=== PATIENT | male | born 1960 | race Caucasian/White ===

== ENCOUNTER 2018-03-14 19:20 | Inpatient (IN) | payer MEDICAID ==
[~2018-03-14 19:20] MED LIST: HEPARIN 5,000 UNIT/0.5 ML VIAL
[2018-03-14 19:38] LABS: ADD MAN DIFF? NO
[2018-03-14 19:44] LABS: WHITE BLOOD COUNT 15.7 10^3/ul (4.8-10.8)
[2018-03-14 19:44] LABS: ABNORMAL IP MESSAGE 1; BASOPHIL # 0.1 10^3/ul (0.0-0.1); BASOPHILS % 0.4 % (0.0-2.0); EOSINOPHILS # 0.1 10^3/ul (0.0-0.5); EOSINOPHILS % 0.5 % (0.0-7.0); HEMATOCRIT 42.8 % (42.0-52.0); HEMOGLOBIN 14.5 g/dl (14.0-18.0); LYMPHOCYTES # 5.2 10^3/ul (0.8-2.9); LYMPHOCYTES % 32.9 % (15.0-51.0); MEAN CORPUSCULAR HEMOGLOBIN 31.1 pg (29.0-33.0); MEAN CORPUSCULAR HGB CONC 33.9 g/dl (32.0-37.0); MEAN CORPUSCULAR VOLUME 91.8 fl (82.0-101.0); MEAN PLATELET VOLUME 11.9 fl (7.4-10.4); MONOCYTE # 0.6 10^3/ul (0.3-0.9); MONOCYTES % 3.7 % (0.0-11.0); NEUTROPHIL # 9.4 10^3/ul (1.6-7.5); NEUTROPHILS % 60.1 % (39.0-77.0); PLATELET COUNT 258 10^3/UL (140-415); POSITIVE DIFF @See below; RED BLOOD COUNT 4.66 10^6/ul (4.70-6.10); RED CELL DISTRIBUTION WIDTH 13.3 % (11.5-14.5)
[2018-03-14] MEDS: MIDAZOLAM (DRIP) 50 mg/50 mL 50 ML IV (20:05)
[2018-03-14] MEDS: HEPARIN 5,000 UNIT/0.5 ML VIAL SC (20:05)
[2018-03-14] MEDS: SOD CHLORIDE 0.9% 1,000 ML IV ×2 (20:05)
[2018-03-14 20:06] LABS: ANION GAP 18 (8-16); BLOOD UREA NITROGEN 16 mg/dl (7-20); CALCIUM 9.3 mg/dl (8.4-10.2); CARBON DIOXIDE 23 mmol/L (21-31); CHLORIDE 107 mmol/L (97-110); CREATINE KINASE 81 IU/L (23-200); CREATININE 0.83 mg/dl (0.61-1.24); GLUCOSE 246 mg/dl (70-220); POTASSIUM 3.7 mmol/L (3.5-5.1); SODIUM 144 mmol/L (135-144)
[2018-03-14 20:10] LABS: INR 1.02; PROTIME 13.5 Sec (11.9-14.9); PT RATIO 1.1
[2018-03-14 20:18] LABS: CK INDEX 1.3; CK-MB 1.09 ng/ml (0.0-2.4); TROPONIN-I 0.046 ng/ml (0.000-0.120)
[2018-03-14] MEDS ORDERED: LIDOCAINE 1% (MDV) 20 ML INJ (20:29)
[2018-03-14] MEDS ORDERED: NITROGLYCERIN (IC) 100 MCG/ML INJ (20:29)
[2018-03-14] MEDS ORDERED: HEPARIN 1000 UNITS/ML 10 ML INJ (20:29)
[2018-03-14] MEDS ORDERED: BIVALIRUDIN 250MG /NS 50 ML 50 ML IVPB (20:29)
[2018-03-14] MEDS ORDERED: IODIXANOL LOCM 50 ML BTL (20:56)
[2018-03-14] MEDS ORDERED: IODIXANOL LOCM 100 ML BTL (20:56)
[2018-03-14] MEDS ORDERED: CANGRELOR TETRASODIUM/ NS 250 50 MG (20:56)
[2018-03-14] MEDS ORDERED: SOD CHLORIDE 0.9% 1,000 ML IV (21:01)
[2018-03-14] MEDS ORDERED: morphine 2 MG INJ IV (21:30)
[2018-03-14] MEDS ORDERED: IPRATROPIUM (HFA) 12.9 GM INHALER INH (21:30)
[2018-03-14] MEDS ORDERED: ALBUTEROL HFA 8 GM INHALER INH (21:30)
[2018-03-14] MEDS: CLOPIDOGREL 300 MG TAB PO (21:30)
[2018-03-14] MEDS ORDERED: ACETAMINOPHEN 325 MG TAB PO (21:30)
[2018-03-14 21:53] LABS: CHOL/HDL RATIO 4.7 RATIO; HDL CHOLESTEROL 39 mg/dl (28-71); LDL CHOLESTEROL,CALCULATED 124 mg/dl; TRIGLYCERIDES 121 mg/dl (0-149)
[2018-03-14 21:53] LABS: CHOLESTEROL 187 mg/dl (100-200)
[2018-03-14 21:57] LABS: MAGNESIUM 2.3 mg/dl (1.7-2.5)
[2018-03-14 21:59] LABS: HEMOGLOBIN A1C 5.2 % (0-5.9)
[2018-03-14] MEDS: PROPOFOL 100 ML IV (22:10)
[2018-03-14] MEDS: METOPROLOL 5 MG INJ IV (22:10)
[2018-03-14 22:42] LABS: AADO2 Arterial 152.5 mmHg (7.0-24.0); Arterial Base Excess -3.5 mmol/L (-3.0-3); Arterial Blood Gas Oxygen Sat 99.3 mmHG (95.0-98.0); Arterial COHb 0.4 % (0.0-3.0); Arterial Fraction of Oxyhgb 98.4 % (93.0-99.0); Arterial HCO3 21.2 mmol/L (22.0-26.0); Arterial MetHb 0.5 % (0.0-1.5); Arterial Total Hemglobin 14.1 g/dl (12.0-18.0); Arterial pCO2 37.2 mmhg (35-45); Blood Gas Low PEEP Setting 0 cmH2O; MODE VENT - AC; Site LB
[2018-03-15] MEDS ORDERED: ACETAMINOPHEN 650 MG SUPP PR
[2018-03-15] MEDS ORDERED: MEPERIDINE 25 MG INJ IV
[2018-03-15] MEDS: FENTAnyl 50 MCG/ML VIAL IV ×4 (00:10→00:30)
[2018-03-15] MEDS: MIDAZOLAM (DRIP) 50 mg/50 mL 50 ML IV ×2 (00:24→06:12)
[2018-03-15] MEDS: ACCU-CHEK XX ×24 (01:00→23:36)
[2018-03-15 01:28] LABS: ANION GAP 12 (8-16); BLOOD UREA NITROGEN 17 mg/dl (7-20); CALCIUM 8.2 mg/dl (8.4-10.2); CARBON DIOXIDE 26 mmol/L (21-31); CHLORIDE 109 mmol/L (97-110); CREATININE 0.64 mg/dl (0.61-1.24); GLUCOSE 177 mg/dl (70-220); MAGNESIUM 1.8 mg/dl (1.7-2.5); PHOSPHORUS 2.2 mg/dl (2.5-4.9); POTASSIUM 3.8 mmol/L (3.5-5.1); SODIUM 143 mmol/L (135-144)
[2018-03-15] MEDS: FENTAnyl (DRIP) 1000 mcg/100mL 100 ML IV (01:44)
[2018-03-15] MEDS ORDERED: ACCU-CHEK XX (02:30)
[2018-03-15] MEDS ORDERED: DEXTROSE 50% 50 ML SYRINGE IV ×4 (02:30)
[2018-03-15] MEDS: SOD CHLORIDE 0.9% 1,000 ML IV ×2 (02:53→19:40)
[2018-03-15] MEDS: MAGNESIUM SULFATE 2 GM/50 ML 50 ML IVPB (03:08)
[2018-03-15] MEDS: METOPROLOL 5 MG INJ IV (03:17)
[2018-03-15] MEDS: VECURONIUM 100 MG in DEXTROSE 5% 100 ML IV ×2 (03:18→08:47)
[2018-03-15] MEDS: FUROSEMIDE 40 MG INJ IV (03:28)
[2018-03-15] MEDS: POTASSIUM PHOSPHATE 40 MEQ in SOD CHLORIDE 0.9% 250 ML IVPB (03:32)
[2018-03-15] MEDS: CLOPIDOGREL 300 MG TAB PO (03:34)
[2018-03-15] MEDS: ASPIRIN 325 MG TAB PO (03:37)
[2018-03-15] MEDS: INSULIN HUMAN REGULAR 100 UNIT in SOD CHLORIDE 0.9% 99 ML IV (04:00)
[2018-03-15] MEDS ORDERED: niCARdipine 25 MG in SOD CHLORIDE 0.9% 240 ML IV (04:30)
[2018-03-15] MEDS ORDERED: AMIODARONE 150MG/D5W BOLUS 100 ML (05:10)
[2018-03-15] MEDS: AMIODARONE 150MG/D5W BOLUS 100 ML IV (05:30)
[2018-03-15] MEDS: ARTIFICIAL TEARS 15 ML OPH BOTH EYES ×4 (05:33→18:02)
[2018-03-15] MEDS: OCULAR LUBRICANT 3.5 GM OPH OINT BOTH EYES ×4 (05:33→18:02)
[2018-03-15] MEDS: PANTOPRAZOLE 40 MG INJ IV (05:34)
[2018-03-15 05:46] LABS: AADO2 Arterial 91.6 mmHg (7.0-24.0); Arterial Base Excess -6.4 mmol/L (-3.0-3); Arterial Blood Gas Oxygen Sat 98.7 mmHG (95.0-98.0); Arterial COHb 0.2 % (0.0-3.0); Arterial Fraction of Oxyhgb 98.3 % (93.0-99.0); Arterial HCO3 18.6 mmol/L (22.0-26.0); Arterial MetHb 0.2 % (0.0-1.5); Arterial Total Hemglobin 14.2 g/dl (12.0-18.0); Blood Gas Low PEEP Setting 0 cmH2O; MODE VENT - AC; Site A-Line; Temperature 33.3 C
[2018-03-15] MEDS ORDERED: DOPamine-D5W 1.6 MG/ML 250 ML (05:48)
[2018-03-15] MEDS: METOPROLOL 25 MG TAB NGT ×3 (06:00→12:30)
[2018-03-15] MEDS: DOPamine-D5W 1.6 MG/ML 250 ML IV (06:07)
[2018-03-15 06:15] LABS: ADD MAN DIFF? NO
[2018-03-15 06:17] LABS: WHITE BLOOD COUNT 13.3 10^3/ul (4.8-10.8)
[2018-03-15 06:17] LABS: BASOPHILS % 0.1 % (0.0-2.0); HEMOGLOBIN 13.4 g/dl (14.0-18.0); LYMPHOCYTES # 0.7 10^3/ul (0.8-2.9); LYMPHOCYTES % 5.2 % (15.0-51.0); MEAN CORPUSCULAR HEMOGLOBIN 32.1 pg (29.0-33.0); MEAN CORPUSCULAR HGB CONC 35.3 g/dl (32.0-37.0); MEAN CORPUSCULAR VOLUME 91.1 fl (82.0-101.0); MONOCYTE # 0.6 10^3/ul (0.3-0.9); MONOCYTES % 4.3 % (0.0-11.0); NEUTROPHIL # 11.9 10^3/ul (1.6-7.5); NEUTROPHILS % 89.7 % (39.0-77.0); PLATELET COUNT 140 10^3/UL (140-415); RED BLOOD COUNT 4.17 10^6/ul (4.70-6.10); RED CELL DISTRIBUTION WIDTH 13.4 % (11.5-14.5)
[2018-03-15 06:38] LABS: PARTIAL THROMBOPLASTIN TIME 29.2 Sec (25.0-35.0)
[2018-03-15 06:44] LABS: LACTIC ACID 1.3 mmol/L (0.5-2.0)
[2018-03-15 06:49] LABS: ALANINE AMINOTRANSFERASE 156 IU/L (13-69); ALBUMIN 3.4 g/dl (3.3-4.9); ALBUMIN/GLOBULIN RATIO 1.25; ALKALINE PHOSPHATASE 70 IU/L (42-121); AMYLASE 58 U/L (11-123); ANION GAP 15 (8-16); ASPARTATE AMINO TRANSFERASE 149 IU/L (15-46); BILIRUBIN,INDIRECT 0.3 mg/dl (0-1.1); BILIRUBIN,TOTAL 0.3 mg/dl (0.2-1.3); BLOOD UREA NITROGEN 19 mg/dl (7-20); CARBON DIOXIDE 20 mmol/L (21-31); CHLORIDE 111 mmol/L (97-110); CREATININE 0.76 mg/dl (0.61-1.24); GLUCOSE 191 mg/dl (70-220); LIPASE 24 U/L (23-300); MAGNESIUM 2.8 mg/dl (1.7-2.5); PHOSPHORUS 5.8 mg/dl (2.5-4.9); POTASSIUM 4.2 mmol/L (3.5-5.1); SODIUM 142 mmol/L (135-144); TOTAL PROTEIN 6.1 g/dl (6.1-8.1)
[2018-03-15 07:02] LABS: CREATINE KINASE 2788 IU/L (23-200)
[2018-03-15 07:04] LABS: D-DIMER > 10000.00 ng/ml (<460)
[2018-03-15] MEDS ORDERED: FENTAnyl 50 MCG/ML VIAL IV (08:30)
[2018-03-15] MEDS ORDERED: ASPIRIN (EC) 81 MG TAB PO (09:00)
[2018-03-15 09:47] LABS: INR 1.05; PROTIME 13.8 Sec (11.9-14.9); PT RATIO 1.1
[2018-03-15] MEDS: PROPOFOL 100 ML IV ×4 (10:36→19:38)
[2018-03-15] MEDS: ASPIRIN 81 MG TAB NGT (11:00)
[2018-03-15 12:11] LABS: AADO2 Arterial 65.1 mmHg (7.0-24.0); Arterial Base Excess -4.1 mmol/L (-3.0-3); Arterial Blood Gas Oxygen Sat 98.2 mmHG (95.0-98.0); Arterial COHb 0.1 % (0.0-3.0); Arterial HCO3 20.6 mmol/L (22.0-26.0); Arterial MetHb 0.1 % (0.0-1.5); Arterial pCO2 31.4 mmhg (35-45); MODE VENT - AC; Site A-Line; Temperature 33.4 C
[2018-03-15 12:24] LABS: ADD MAN DIFF? NO
[2018-03-15 12:26] LABS: BASOPHILS % 0.1 % (0.0-2.0); HEMATOCRIT 40.8 % (42.0-52.0); HEMOGLOBIN 14.1 g/dl (14.0-18.0); LYMPHOCYTES % 7.1 % (15.0-51.0); MEAN CORPUSCULAR HEMOGLOBIN 31.2 pg (29.0-33.0); MEAN CORPUSCULAR HGB CONC 34.6 g/dl (32.0-37.0); MEAN CORPUSCULAR VOLUME 90.3 fl (82.0-101.0); MEAN PLATELET VOLUME 11.7 fl (7.4-10.4); MONOCYTES % 7.7 % (0.0-11.0); NEUTROPHIL # 11.3 10^3/ul (1.6-7.5); NEUTROPHILS % 84.7 % (39.0-77.0); PLATELET COUNT 146 10^3/UL (140-415); RED BLOOD COUNT 4.52 10^6/ul (4.70-6.10); RED CELL DISTRIBUTION WIDTH 13.5 % (11.5-14.5)
[2018-03-15 12:26] LABS: WHITE BLOOD COUNT 13.4 10^3/ul (4.8-10.8)
[2018-03-15 12:46] LABS: INR 1.01; PARTIAL THROMBOPLASTIN TIME 28.3 Sec (25.0-35.0); PROTIME 13.4 Sec (11.9-14.9)
[2018-03-15 12:49] LABS: AMYLASE 60 U/L (11-123); ANION GAP 13 (8-16); BLOOD UREA NITROGEN 18 mg/dl (7-20); CALCIUM 8.3 mg/dl (8.4-10.2); CARBON DIOXIDE 23 mmol/L (21-31); CHLORIDE 110 mmol/L (97-110); CREATININE 0.66 mg/dl (0.61-1.24); GLUCOSE 138 mg/dl (70-220); LIPASE 13 U/L (23-300); MAGNESIUM 2.3 mg/dl (1.7-2.5); PHOSPHORUS 3.9 mg/dl (2.5-4.9); POTASSIUM 3.1 mmol/L (3.5-5.1); SODIUM 143 mmol/L (135-144)
[2018-03-15] MEDS ORDERED: ATROPINE 1 MG/10 ML SYRINGE (13:09)
[2018-03-15] MEDS: ATROPINE 1 MG/10 ML SYRINGE IV ×2 (13:41→18:02)
[2018-03-15] MEDS: POTASSIUM CHLORIDE 50 ML IVPB ×2 (15:15→17:48)
[2018-03-15] MEDS: PIPER-TAZO 3.375 GM IV (PMX) 100 ML IVPB ×2 (15:58→16:01)
[2018-03-15 18:06] LABS: AADO2 Arterial 83.6 mmHg (7.0-24.0); Arterial Base Excess -4.9 mmol/L (-3.0-3); Arterial Blood Gas Oxygen Sat 97.9 mmHG (95.0-98.0); Arterial COHb 0.2 % (0.0-3.0); Arterial Fraction of Oxyhgb 97.4 % (93.0-99.0); Arterial HCO3 19.5 mmol/L (22.0-26.0); Arterial MetHb 0.3 % (0.0-1.5); Arterial Total Hemglobin 14.3 g/dl (12.0-18.0); Arterial pCO2 27.8 mmhg (35-45); Blood Gas High PEEP Setting 0 cmH2O; MODE VENT - AC; Site PUL ART LINE; Temperature 32.1 C
[2018-03-15 18:09] LABS: ADD MAN DIFF? NO
[2018-03-15 18:13] LABS: WHITE BLOOD COUNT 11.9 10^3/ul (4.8-10.8)
[2018-03-15 18:13] LABS: BASOPHILS % 0.1 % (0.0-2.0); EOSINOPHILS % 0.1 % (0.0-7.0); HEMATOCRIT 38.1 % (42.0-52.0); HEMOGLOBIN 13.4 g/dl (14.0-18.0); LYMPHOCYTES # 1.2 10^3/ul (0.8-2.9); LYMPHOCYTES % 10.1 % (15.0-51.0); MEAN CORPUSCULAR HEMOGLOBIN 30.9 pg (29.0-33.0); MEAN CORPUSCULAR HGB CONC 35.2 g/dl (32.0-37.0); MEAN PLATELET VOLUME 11.8 fl (7.4-10.4); MONOCYTE # 0.7 10^3/ul (0.3-0.9); MONOCYTES % 5.6 % (0.0-11.0); NEUTROPHILS % 83.8 % (39.0-77.0); PLATELET COUNT 122 10^3/UL (140-415); POSITIVE DIFF @See below; RED BLOOD COUNT 4.33 10^6/ul (4.70-6.10); RED CELL DISTRIBUTION WIDTH 13.5 % (11.5-14.5)
[2018-03-15 18:31] LABS: INR 1.07; PT RATIO 1.1
[2018-03-15 18:32] LABS: PARTIAL THROMBOPLASTIN TIME 29.7 Sec (25.0-35.0)
[2018-03-15 18:56] LABS: AMYLASE 50 U/L (11-123); ANION GAP 11 (8-16); BLOOD UREA NITROGEN 19 mg/dl (7-20); CALCIUM 8.2 mg/dl (8.4-10.2); CARBON DIOXIDE 22 mmol/L (21-31); CHLORIDE 114 mmol/L (97-110); CREATININE 0.56 mg/dl (0.61-1.24); GLUCOSE 116 mg/dl (70-220); MAGNESIUM 2.4 mg/dl (1.7-2.5); PHOSPHORUS 3.3 mg/dl (2.5-4.9); SODIUM 143 mmol/L (135-144)
[2018-03-15 19:07] LABS: LIPASE < 10 U/L (23-300)
[2018-03-15] MEDS: ATORVASTATIN 80 MG TAB PO (21:30)
[2018-03-15] MEDS: hydrALAzine 20 MG INJ IV (22:15)
[2018-03-16] MEDS: PIPER-TAZO 3.375 GM IV (PMX) 100 ML IVPB ×4 (00:11→18:00)
[2018-03-16] MEDS: ACETAMINOPHEN 650MG/20.3ML CUP PO ×4 (00:12→18:08)
[2018-03-16] MEDS: ARTIFICIAL TEARS 15 ML OPH BOTH EYES ×4 (00:12→18:01)
[2018-03-16] MEDS: OCULAR LUBRICANT 3.5 GM OPH OINT BOTH EYES ×4 (00:13→18:01)
[2018-03-16] MEDS: ACCU-CHEK XX ×16 (00:14→22:19)
[2018-03-16] MEDS: PROPOFOL 100 ML IV ×4 (00:15→20:58)
[2018-03-16 00:21] LABS: AADO2 Arterial 50.5 mmHg (7.0-24.0); Arterial Base Excess -4.5 mmol/L (-3.0-3); Arterial COHb 0.5 % (0.0-3.0); Arterial Fraction of Oxyhgb 97.5 % (93.0-99.0); Arterial HCO3 20.5 mmol/L (22.0-26.0); Arterial MetHb 0 % (0.0-1.5); Arterial Total Hemglobin 15.1 g/dl (12.0-18.0); Arterial pCO2 37.8 mmhg (35-45); Blood Gas Low PEEP Setting 0 cmH2O; MODE VENT - AC; Site A-Line
[2018-03-16 00:52] LABS: ADD MAN DIFF? NO
[2018-03-16 00:55] LABS: BASOPHILS % 0.1 % (0.0-2.0); EOSINOPHILS % 0.3 % (0.0-7.0); HEMATOCRIT 40.2 % (42.0-52.0); HEMOGLOBIN 14.2 g/dl (14.0-18.0); LYMPHOCYTES # 1.3 10^3/ul (0.8-2.9); LYMPHOCYTES % 9.4 % (15.0-51.0); MEAN CORPUSCULAR HEMOGLOBIN 31.6 pg (29.0-33.0); MEAN CORPUSCULAR HGB CONC 35.3 g/dl (32.0-37.0); MEAN CORPUSCULAR VOLUME 89.5 fl (82.0-101.0); MEAN PLATELET VOLUME 12.1 fl (7.4-10.4); MONOCYTE # 0.9 10^3/ul (0.3-0.9); MONOCYTES % 6.2 % (0.0-11.0); NEUTROPHIL # 11.7 10^3/ul (1.6-7.5); NEUTROPHILS % 83.6 % (39.0-77.0); PLATELET COUNT 127 10^3/UL (140-415); RED BLOOD COUNT 4.49 10^6/ul (4.70-6.10); RED CELL DISTRIBUTION WIDTH 13.6 % (11.5-14.5)
[2018-03-16 01:15] LABS: INR 1.07; PT RATIO 1.1
[2018-03-16 01:16] LABS: PARTIAL THROMBOPLASTIN TIME 28.5 Sec (25.0-35.0)
[2018-03-16 01:19] LABS: AMYLASE 48 U/L (11-123); ANION GAP 9 (8-16); BLOOD UREA NITROGEN 16 mg/dl (7-20); CALCIUM 8.5 mg/dl (8.4-10.2); CARBON DIOXIDE 24 mmol/L (21-31); CHLORIDE 112 mmol/L (97-110); CREATININE 0.47 mg/dl (0.61-1.24); GLUCOSE 102 mg/dl (70-220); LIPASE 26 U/L (23-300); MAGNESIUM 2.3 mg/dl (1.7-2.5); POTASSIUM 3.3 mmol/L (3.5-5.1); SODIUM 142 mmol/L (135-144)
[2018-03-16] MEDS: POTASSIUM CHLORIDE 100 ML IVPB (01:40)
[2018-03-16] MEDS: VECURONIUM 100 MG in DEXTROSE 5% 100 ML IV (04:07)
[2018-03-16] MEDS: INSULIN HUMAN REGULAR 100 UNIT in SOD CHLORIDE 0.9% 99 ML IV (04:11)
[2018-03-16] MEDS: FENTAnyl (DRIP) 1000 mcg/100mL 100 ML IV (04:13)
[2018-03-16] MEDS: PANTOPRAZOLE 40 MG INJ IV (05:30)
[2018-03-16] MEDS: ACETAMINOPHEN 650 MG SUPP PR ×4 (06:00→18:00)
[2018-03-16 06:13] LABS: ADD MAN DIFF? NO
[2018-03-16 06:14] LABS: WHITE BLOOD COUNT 12.8 10^3/ul (4.8-10.8)
[2018-03-16 06:14] LABS: BASOPHILS % 0.1 % (0.0-2.0); EOSINOPHILS % 0.2 % (0.0-7.0); HEMATOCRIT 39.1 % (42.0-52.0); HEMOGLOBIN 13.6 g/dl (14.0-18.0); LYMPHOCYTES # 1.2 10^3/ul (0.8-2.9); LYMPHOCYTES % 9.1 % (15.0-51.0); MEAN CORPUSCULAR HEMOGLOBIN 30.8 pg (29.0-33.0); MEAN CORPUSCULAR HGB CONC 34.8 g/dl (32.0-37.0); MEAN CORPUSCULAR VOLUME 88.7 fl (82.0-101.0); MEAN PLATELET VOLUME 11.4 fl (7.4-10.4); MONOCYTE # 0.7 10^3/ul (0.3-0.9); MONOCYTES % 5.4 % (0.0-11.0); NEUTROPHIL # 10.9 10^3/ul (1.6-7.5); NEUTROPHILS % 84.7 % (39.0-77.0); PLATELET COUNT 126 10^3/UL (140-415); POSITIVE DIFF @See below; RED BLOOD COUNT 4.41 10^6/ul (4.70-6.10); RED CELL DISTRIBUTION WIDTH 13.9 % (11.5-14.5)
[2018-03-16 06:16] LABS: AADO2 Arterial 60.3 mmHg (7.0-24.0); Arterial Blood Gas Oxygen Sat 97.4 mmHG (95.0-98.0); Arterial COHb 0.2 % (0.0-3.0); Arterial Fraction of Oxyhgb 97.2 % (93.0-99.0); Arterial HCO3 22.7 mmol/L (22.0-26.0); Arterial MetHb 0 % (0.0-1.5); Arterial Total Hemglobin 14.4 g/dl (12.0-18.0); Arterial pCO2 43.1 mmhg (35-45); Blood Gas Low PEEP Setting 0 cmH2O; MODE VENT - AC; Site A-Line
[2018-03-16 06:35] LABS: INR 1.14; PROTIME 14.8 Sec (11.9-14.9); PT RATIO 1.2
[2018-03-16 06:36] LABS: PARTIAL THROMBOPLASTIN TIME 31.4 Sec (25.0-35.0)
[2018-03-16] MEDS: SOD CHLORIDE 0.9% 1,000 ML IV ×3 (06:39→17:56)
[2018-03-16 07:16] LABS: AMYLASE 42 U/L (11-123); ANION GAP 11 (8-16); BLOOD UREA NITROGEN 14 mg/dl (7-20); CALCIUM 8.3 mg/dl (8.4-10.2); CARBON DIOXIDE 23 mmol/L (21-31); CHLORIDE 113 mmol/L (97-110); CREATININE 0.46 mg/dl (0.61-1.24); GLUCOSE 129 mg/dl (70-220); LIPASE 22 U/L (23-300); MAGNESIUM 2.2 mg/dl (1.7-2.5); PHOSPHORUS 2.9 mg/dl (2.5-4.9); POTASSIUM 3.7 mmol/L (3.5-5.1); SODIUM 143 mmol/L (135-144)
[2018-03-16] MEDS: ASPIRIN 81 MG TAB NGT (09:00)
[2018-03-16] MEDS: CLOPIDOGREL 75 MG TAB PO (09:00)
[2018-03-16] MEDS: ENOXAPARIN 40 MG/0.4 ML SYG SC (09:01)
[2018-03-16] MEDS ORDERED: GLUCAGON 1 MG INJ IM (11:00)
[2018-03-16] MEDS ORDERED: GLUCOSE GEL 15 GRAM TUBE BUCCAL (11:00)
[2018-03-16] MEDS ORDERED: GLUCOSE GEL 15 GRAM TUBE PO ×2 (11:00)
[2018-03-16] MEDS ORDERED: DEXTROSE 50% 50 ML SYRINGE IV (11:00)
[2018-03-16 12:20] LABS: ADD MAN DIFF? NO
[2018-03-16 12:24] LABS: WHITE BLOOD COUNT 13.6 10^3/ul (4.8-10.8)
[2018-03-16 12:24] LABS: BASOPHILS % 0.1 % (0.0-2.0); EOSINOPHILS % 0.2 % (0.0-7.0); HEMATOCRIT 39.6 % (42.0-52.0); HEMOGLOBIN 13.7 g/dl (14.0-18.0); LYMPHOCYTES # 0.9 10^3/ul (0.8-2.9); LYMPHOCYTES % 6.8 % (15.0-51.0); MEAN CORPUSCULAR HEMOGLOBIN 31.3 pg (29.0-33.0); MEAN CORPUSCULAR HGB CONC 34.6 g/dl (32.0-37.0); MEAN CORPUSCULAR VOLUME 90.4 fl (82.0-101.0); MEAN PLATELET VOLUME 11.4 fl (7.4-10.4); MONOCYTE # 0.7 10^3/ul (0.3-0.9); NEUTROPHIL # 11.9 10^3/ul (1.6-7.5); NEUTROPHILS % 87.5 % (39.0-77.0); PLATELET COUNT 138 10^3/UL (140-415); POSITIVE DIFF @See below; RED BLOOD COUNT 4.38 10^6/ul (4.70-6.10); RED CELL DISTRIBUTION WIDTH 14.1 % (11.5-14.5)
[2018-03-16] MEDS: MEPERIDINE 25 MG INJ IV (12:27)
[2018-03-16] MEDS: ACETAMINOPHEN 650MG/20.3ML CUP NGT (12:27)
[2018-03-16 12:39] LABS: AMYLASE 54 U/L (11-123); ANION GAP 9 (8-16); BLOOD UREA NITROGEN 14 mg/dl (7-20); CALCIUM 8.1 mg/dl (8.4-10.2); CARBON DIOXIDE 23 mmol/L (21-31); CHLORIDE 115 mmol/L (97-110); CREATININE 0.51 mg/dl (0.61-1.24); GLUCOSE 95 mg/dl (70-220); LIPASE 50 U/L (23-300); MAGNESIUM 2.1 mg/dl (1.7-2.5); PHOSPHORUS 3.3 mg/dl (2.5-4.9); POTASSIUM 4.2 mmol/L (3.5-5.1); SODIUM 143 mmol/L (135-144)
[2018-03-16 12:48] LABS: INR 1.11; PARTIAL THROMBOPLASTIN TIME 36.8 Sec (25.0-35.0); PROTIME 14.5 Sec (11.9-14.9); PT RATIO 1.1
[2018-03-16 13:01] LABS: AADO2 Arterial 92.9 mmHg (7.0-24.0); Arterial Base Excess -3.7 mmol/L (-3.0-3); Arterial Blood Gas Oxygen Sat 97.2 mmHG (95.0-98.0); Arterial COHb 0.1 % (0.0-3.0); Arterial Fraction of Oxyhgb 97.1 % (93.0-99.0); Arterial HCO3 20.6 mmol/L (22.0-26.0); Arterial MetHb 0 % (0.0-1.5); Arterial Total Hemglobin 13.8 g/dl (12.0-18.0); Arterial pCO2 31.7 mmhg (35-45); MODE VENT - AC; Site Right Brachial; Temperature 34.6 C
[2018-03-16 15:23] LABS: ANISOCYTOSIS 1+ (0-0); BAND NEUTROPHILS #M 0.8 10^3/ul (0.0-0.6); BAND NEUTROPHILS % (M) 6 % (0-4); EOSINOPHILS % (M) 1 % (0-7); LYMPHOCYTES #M 0.9 10^3/ul (0.8-2.9); LYMPHOCYTES % (M) 7 % (15-51); MICROCYTOSIS 1+ (0-0); MONOCYTE #M 0.6 10^3/ul (0.3-0.9); MONOCYTES % (M) 5 % (0-11); PLATELET ESTIMATE NORMAL; POIKILOCYTOSIS 1+ (0-0); SEG NEUT #M 11.1 10^3/ul (1.6-7.5); SEGMENTED NEUTROPHILS (M) % 81 % (39-77); SMUDGE%M 18 % (0-0)
[2018-03-16] MEDS: SOD CHLORIDE 0.9% 250 ML IV (15:35)
[2018-03-16 17:50] LABS: ADD MAN DIFF? NO
[2018-03-16 17:52] LABS: BASOPHILS % 0.1 % (0.0-2.0); EOSINOPHILS % 0.1 % (0.0-7.0); HEMATOCRIT 37.3 % (42.0-52.0); HEMOGLOBIN 12.9 g/dl (14.0-18.0); LYMPHOCYTES # 0.8 10^3/ul (0.8-2.9); MEAN CORPUSCULAR HEMOGLOBIN 31.2 pg (29.0-33.0); MEAN CORPUSCULAR HGB CONC 34.6 g/dl (32.0-37.0); MEAN CORPUSCULAR VOLUME 90.3 fl (82.0-101.0); MEAN PLATELET VOLUME 11.2 fl (7.4-10.4); MONOCYTE # 0.5 10^3/ul (0.3-0.9); MONOCYTES % 4.6 % (0.0-11.0); NEUTROPHIL # 10.3 10^3/ul (1.6-7.5); NEUTROPHILS % 87.7 % (39.0-77.0); PLATELET COUNT 142 10^3/UL (140-415); RED BLOOD COUNT 4.13 10^6/ul (4.70-6.10); RED CELL DISTRIBUTION WIDTH 14.3 % (11.5-14.5)
[2018-03-16 17:52] LABS: WHITE BLOOD COUNT 11.8 10^3/ul (4.8-10.8)
[2018-03-16 18:12] LABS: INR 1.16; PT RATIO 1.2
[2018-03-16 18:13] LABS: AMYLASE 62 U/L (11-123); ANION GAP 8 (8-16); BLOOD UREA NITROGEN 13 mg/dl (7-20); CALCIUM 8.1 mg/dl (8.4-10.2); CARBON DIOXIDE 24 mmol/L (21-31); CHLORIDE 114 mmol/L (97-110); CREATININE 0.52 mg/dl (0.61-1.24); GLUCOSE 88 mg/dl (70-220); LIPASE 80 U/L (23-300); MAGNESIUM 1.9 mg/dl (1.7-2.5); PARTIAL THROMBOPLASTIN TIME 32.9 Sec (25.0-35.0); PHOSPHORUS 3.2 mg/dl (2.5-4.9); POTASSIUM 3.7 mmol/L (3.5-5.1); SODIUM 142 mmol/L (135-144)
[2018-03-16 18:20] LABS: AADO2 Arterial 78.3 mmHg (7.0-24.0); Arterial Base Excess -3.4 mmol/L (-3.0-3); Arterial Blood Gas Oxygen Sat 97.3 mmHG (95.0-98.0); Arterial COHb 0.1 % (0.0-3.0); Arterial Fraction of Oxyhgb 97.1 % (93.0-99.0); Arterial HCO3 20.8 mmol/L (22.0-26.0); Arterial MetHb 0.1 % (0.0-1.5); Arterial Total Hemglobin 13.4 g/dl (12.0-18.0); Arterial pCO2 34.2 mmhg (35-45); MODE VENT - AC; Site Right Brachial; Temperature 36.4 C
[2018-03-16] MEDS: ATORVASTATIN 80 MG TAB PO (21:02)
[2018-03-16] MEDS: DEXTROSE 50% 50 ML SYRINGE IV (22:10)
[2018-03-17] MEDS: PIPER-TAZO 3.375 GM IV (PMX) 100 ML IVPB ×5 (00:04→23:24)
[2018-03-17] MEDS: ACETAMINOPHEN 650MG/20.3ML CUP PO ×2 (00:04→05:23)
[2018-03-17] MEDS: ARTIFICIAL TEARS 15 ML OPH BOTH EYES ×2 (00:05→05:24)
[2018-03-17] MEDS: OCULAR LUBRICANT 3.5 GM OPH OINT BOTH EYES ×3 (00:24→12:00)
[2018-03-17] MEDS: ACCU-CHEK XX ×5 (00:25→08:09)
[2018-03-17 00:52] LABS: ADD MAN DIFF? NO
[2018-03-17] MEDS: DEXTROSE 5%-0.9% NACL 1,000 ML IV (01:02)
[2018-03-17 01:03] LABS: BASOPHILS % 0.1 % (0.0-2.0); EOSINOPHILS % 0.1 % (0.0-7.0); HEMATOCRIT 36.5 % (42.0-52.0); HEMOGLOBIN 12.3 g/dl (14.0-18.0); LYMPHOCYTES # 1.1 10^3/ul (0.8-2.9); LYMPHOCYTES % 8.8 % (15.0-51.0); MEAN CORPUSCULAR HEMOGLOBIN 30.9 pg (29.0-33.0); MEAN CORPUSCULAR HGB CONC 33.7 g/dl (32.0-37.0); MEAN CORPUSCULAR VOLUME 91.7 fl (82.0-101.0); MEAN PLATELET VOLUME 12.6 fl (7.4-10.4); MONOCYTE # 0.7 10^3/ul (0.3-0.9); MONOCYTES % 5.6 % (0.0-11.0); NEUTROPHIL # 10.1 10^3/ul (1.6-7.5); NEUTROPHILS % 84.9 % (39.0-77.0); PLATELET COUNT 136 10^3/UL (140-415); RED BLOOD COUNT 3.98 10^6/ul (4.70-6.10); RED CELL DISTRIBUTION WIDTH 14.5 % (11.5-14.5)
[2018-03-17 01:03] LABS: WHITE BLOOD COUNT 11.9 10^3/ul (4.8-10.8)
[2018-03-17 01:15] LABS: AMYLASE 95 U/L (11-123); ANION GAP 11 (8-16); BLOOD UREA NITROGEN 12 mg/dl (7-20); CALCIUM 8.1 mg/dl (8.4-10.2); CARBON DIOXIDE 25 mmol/L (21-31); CHLORIDE 111 mmol/L (97-110); GLUCOSE 137 mg/dl (70-220); INR 1.14; LIPASE 150 U/L (23-300); MAGNESIUM 1.9 mg/dl (1.7-2.5); PHOSPHORUS 3.4 mg/dl (2.5-4.9); POTASSIUM 3.7 mmol/L (3.5-5.1); PROTIME 14.8 Sec (11.9-14.9); PT RATIO 1.2; SODIUM 143 mmol/L (135-144)
[2018-03-17 01:16] LABS: PARTIAL THROMBOPLASTIN TIME 29.8 Sec (25.0-35.0)
[2018-03-17] MEDS: PROPOFOL 100 ML IV ×4 (01:23→21:16)
[2018-03-17] MEDS: DEXTROSE 50% 50 ML SYRINGE IV (04:07)
[2018-03-17] MEDS: PANTOPRAZOLE 40 MG INJ IV (05:23)
[2018-03-17] MEDS: FENTAnyl (DRIP) 1000 mcg/100mL 100 ML IV (05:25)
[2018-03-17] MEDS: ACETAMINOPHEN 650 MG SUPP PR ×2 (06:00)
[2018-03-17 07:18] LABS: ADD MAN DIFF? NO
[2018-03-17 07:21] LABS: WHITE BLOOD COUNT 10.1 10^3/ul (4.8-10.8)
[2018-03-17 07:21] LABS: BASOPHILS % 0.2 % (0.0-2.0); EOSINOPHILS % 0.1 % (0.0-7.0); HEMOGLOBIN 11.6 g/dl (14.0-18.0); LYMPHOCYTES # 1.4 10^3/ul (0.8-2.9); LYMPHOCYTES % 13.6 % (15.0-51.0); MEAN CORPUSCULAR HEMOGLOBIN 31.8 pg (29.0-33.0); MEAN CORPUSCULAR HGB CONC 34.1 g/dl (32.0-37.0); MEAN CORPUSCULAR VOLUME 93.2 fl (82.0-101.0); MEAN PLATELET VOLUME 12.8 fl (7.4-10.4); MONOCYTE # 0.5 10^3/ul (0.3-0.9); MONOCYTES % 5.1 % (0.0-11.0); NEUTROPHIL # 8.2 10^3/ul (1.6-7.5); NEUTROPHILS % 80.7 % (39.0-77.0); PLATELET COUNT 120 10^3/UL (140-415); RED BLOOD COUNT 3.65 10^6/ul (4.70-6.10); RED CELL DISTRIBUTION WIDTH 14.3 % (11.5-14.5)
[2018-03-17 07:23] LABS: INR 1.21; PROTIME 15.5 Sec (11.9-14.9); PT RATIO 1.2
[2018-03-17 07:24] LABS: PARTIAL THROMBOPLASTIN TIME 31.2 Sec (25.0-35.0)
[2018-03-17 07:28] LABS: ANION GAP 7 (8-16); BLOOD UREA NITROGEN 11 mg/dl (7-20); CALCIUM 8.2 mg/dl (8.4-10.2); CARBON DIOXIDE 26 mmol/L (21-31); CHLORIDE 114 mmol/L (97-110); CREATININE 0.53 mg/dl (0.61-1.24); GLUCOSE 93 mg/dl (70-220); PHOSPHORUS 2.8 mg/dl (2.5-4.9); POTASSIUM 3.7 mmol/L (3.5-5.1); SODIUM 143 mmol/L (135-144)
[2018-03-17] MEDS: DEXTROSE 5%-0.45% NACL 1,000 ML IV ×2 (08:09→21:18)
[2018-03-17] MEDS: CLOPIDOGREL 75 MG TAB PO (08:28)
[2018-03-17] MEDS: ASPIRIN 81 MG TAB NGT (08:28)
[2018-03-17] MEDS: ENOXAPARIN 40 MG/0.4 ML SYG SC (08:28)
[2018-03-17] MEDS: ATORVASTATIN 80 MG TAB PO (21:16)
[2018-03-18] MEDS: FENTAnyl (DRIP) 1000 mcg/100mL 100 ML IV (01:26)
[2018-03-18] MEDS: PROPOFOL 100 ML IV ×3 (03:57→21:59)
[2018-03-18 05:28] LABS: ADD MAN DIFF? NO
[2018-03-18 05:34] LABS: WHITE BLOOD COUNT 7.4 10^3/ul (4.8-10.8)
[2018-03-18 05:34] LABS: BASOPHILS % 0.3 % (0.0-2.0); EOSINOPHILS % 0.4 % (0.0-7.0); HEMATOCRIT 31.2 % (42.0-52.0); HEMOGLOBIN 10.6 g/dl (14.0-18.0); LYMPHOCYTES # 1.2 10^3/ul (0.8-2.9); LYMPHOCYTES % 15.6 % (15.0-51.0); MEAN CORPUSCULAR HEMOGLOBIN 31.2 pg (29.0-33.0); MEAN CORPUSCULAR VOLUME 91.8 fl (82.0-101.0); MONOCYTE # 0.4 10^3/ul (0.3-0.9); MONOCYTES % 5.4 % (0.0-11.0); NEUTROPHIL # 5.8 10^3/ul (1.6-7.5); PLATELET COUNT 125 10^3/UL (140-415); RED CELL DISTRIBUTION WIDTH 14.3 % (11.5-14.5)
[2018-03-18] MEDS: PIPER-TAZO 3.375 GM IV (PMX) 100 ML IVPB ×3 (05:48→18:41)
[2018-03-18] MEDS: PANTOPRAZOLE 40 MG INJ IV (05:49)
[2018-03-18 06:16] LABS: ANION GAP 8 (8-16); BLOOD UREA NITROGEN 10 mg/dl (7-20); CALCIUM 8.3 mg/dl (8.4-10.2); CARBON DIOXIDE 26 mmol/L (21-31); CHLORIDE 111 mmol/L (97-110); CREATININE 0.53 mg/dl (0.61-1.24); GLUCOSE 82 mg/dl (70-220); SODIUM 142 mmol/L (135-144)
[2018-03-18 06:23] LABS: POTASSIUM 2.9 mmol/L (3.5-5.1)
[2018-03-18] MEDS: POTASSIUM CHLORIDE 100 ML IVPB (06:58)
[2018-03-18] MEDS: LORAZEPAM 2 MG INJ IV (09:46)
[2018-03-18] MEDS: POTASSIUM PHOSPHATE 30 MM in SOD CHLORIDE 0.9% 250 ML IVPB (10:25)
[2018-03-18] MEDS: CLOPIDOGREL 75 MG TAB PO (10:25)
[2018-03-18] MEDS: ASPIRIN 81 MG TAB NGT (10:25)
[2018-03-18] MEDS: ENOXAPARIN 40 MG/0.4 ML SYG SC (10:26)
[2018-03-18] MEDS: METOPROLOL 25 MG TAB PO (21:04)
[2018-03-18] MEDS: ATORVASTATIN 80 MG TAB PO (21:04)
[2018-03-19] MEDS: PIPER-TAZO 3.375 GM IV (PMX) 100 ML IVPB ×5 (00:12→23:46)
[2018-03-19] MEDS: FENTAnyl (DRIP) 1000 mcg/100mL 100 ML IV (02:55)
[2018-03-19 05:22] LABS: ADD MAN DIFF? NO
[2018-03-19 05:29] LABS: WHITE BLOOD COUNT 6.2 10^3/ul (4.8-10.8)
[2018-03-19 05:29] LABS: BASOPHILS % 0.3 % (0.0-2.0); EOSINOPHILS # 0.1 10^3/ul (0.0-0.5); EOSINOPHILS % 1.3 % (0.0-7.0); HEMATOCRIT 29.7 % (42.0-52.0); HEMOGLOBIN 10.1 g/dl (14.0-18.0); LYMPHOCYTES # 1.5 10^3/ul (0.8-2.9); LYMPHOCYTES % 23.9 % (15.0-51.0); MEAN CORPUSCULAR HEMOGLOBIN 31.2 pg (29.0-33.0); MEAN CORPUSCULAR VOLUME 91.7 fl (82.0-101.0); MEAN PLATELET VOLUME 12.2 fl (7.4-10.4); MONOCYTE # 0.4 10^3/ul (0.3-0.9); MONOCYTES % 6.1 % (0.0-11.0); NEUTROPHIL # 4.2 10^3/ul (1.6-7.5); NEUTROPHILS % 68.1 % (39.0-77.0); PLATELET COUNT 138 10^3/UL (140-415); RED BLOOD COUNT 3.24 10^6/ul (4.70-6.10); RED CELL DISTRIBUTION WIDTH 13.9 % (11.5-14.5)
[2018-03-19 05:59] LABS: ALANINE AMINOTRANSFERASE 71 IU/L (13-69); ALBUMIN 2.3 g/dl (3.3-4.9); ALKALINE PHOSPHATASE 82 IU/L (42-121); ASPARTATE AMINO TRANSFERASE 51 IU/L (15-46); BILIRUBIN,INDIRECT 0.5 mg/dl (0-1.1); BILIRUBIN,TOTAL 0.5 mg/dl (0.2-1.3); TOTAL PROTEIN 4.4 g/dl (6.1-8.1)
[2018-03-19 06:02] LABS: ANION GAP 6 (8-16); BLOOD UREA NITROGEN 13 mg/dl (7-20); CALCIUM 8.3 mg/dl (8.4-10.2); CARBON DIOXIDE 30 mmol/L (21-31); CHLORIDE 110 mmol/L (97-110); CREATININE 0.56 mg/dl (0.61-1.24); GLUCOSE 104 mg/dl (70-220); MAGNESIUM 1.9 mg/dl (1.7-2.5); PHOSPHORUS 2.9 mg/dl (2.5-4.9); POTASSIUM 3.1 mmol/L (3.5-5.1); SODIUM 143 mmol/L (135-144)
[2018-03-19] MEDS: PANTOPRAZOLE 40 MG INJ IV (06:13)
[2018-03-19] MEDS: POTASSIUM CHLORIDE 20 MEQ POWDER FOR ORAL SOLN NGT (08:52)
[2018-03-19] MEDS: METOPROLOL 25 MG TAB PO ×2 (08:52→20:51)
[2018-03-19] MEDS: ASPIRIN 81 MG TAB NGT (08:52)
[2018-03-19] MEDS: CLOPIDOGREL 75 MG TAB PO (08:52)
[2018-03-19] MEDS: ENOXAPARIN 40 MG/0.4 ML SYG SC (08:53)
[2018-03-19] MEDS: LORAZEPAM 2 MG INJ IV ×2 (09:13→23:29)
[2018-03-19 10:13] LABS: AADO2 Arterial 84.6 mmHg (7.0-24.0); Arterial COHb 0.1 % (0.0-3.0); Arterial Fraction of Oxyhgb 93.7 % (93.0-99.0); Arterial HCO3 26.8 mmol/L (22.0-26.0); Arterial MetHb 0.2 % (0.0-1.5); Arterial Total Hemglobin 13.7 g/dl (12.0-18.0); Arterial pCO2 47.6 mmhg (35-45); Blood Gas PS 10; MODE VENT - CPAP; Site LB
[2018-03-19] MEDS: METOPROLOL 5 MG INJ IV (18:20)
[2018-03-19] MEDS: ATORVASTATIN 80 MG TAB PO (20:51)
[2018-03-19] MEDS: ACETAMINOPHEN 650MG/20.3ML CUP PO (23:30)
[2018-03-20] MEDS: ACETAMINOPHEN 650MG/20.3ML CUP PO (00:12)
[2018-03-20] MEDS: METOPROLOL 5 MG INJ IV ×2 (00:13→14:06)
[2018-03-20] MEDS: PIPER-TAZO 3.375 GM IV (PMX) 100 ML IVPB (05:27)
[2018-03-20] MEDS: LANSOPRAZOLE 30 MG CAP GTB (05:27)
[2018-03-20 05:59] LABS: ANION GAP 7 (8-16); BLOOD UREA NITROGEN 14 mg/dl (7-20); CALCIUM 8.3 mg/dl (8.4-10.2); CARBON DIOXIDE 30 mmol/L (21-31); CHLORIDE 109 mmol/L (97-110); CREATININE 0.49 mg/dl (0.61-1.24); GLUCOSE 118 mg/dl (70-220); MAGNESIUM 1.8 mg/dl (1.7-2.5); PHOSPHORUS 2.6 mg/dl (2.5-4.9); POTASSIUM 3.2 mmol/L (3.5-5.1); SODIUM 143 mmol/L (135-144)
[2018-03-20 06:42] LABS: ADD MAN DIFF? NO
[2018-03-20 06:44] LABS: BASOPHILS % 0.3 % (0.0-2.0); EOSINOPHILS # 0.1 10^3/ul (0.0-0.5); EOSINOPHILS % 0.7 % (0.0-7.0); HEMATOCRIT 30.1 % (42.0-52.0); HEMOGLOBIN 10.6 g/dl (14.0-18.0); LYMPHOCYTES # 1.2 10^3/ul (0.8-2.9); LYMPHOCYTES % 12.7 % (15.0-51.0); MEAN CORPUSCULAR HEMOGLOBIN 31.8 pg (29.0-33.0); MEAN CORPUSCULAR HGB CONC 35.2 g/dl (32.0-37.0); MEAN CORPUSCULAR VOLUME 90.4 fl (82.0-101.0); MEAN PLATELET VOLUME 11.5 fl (7.4-10.4); MONOCYTE # 0.7 10^3/ul (0.3-0.9); MONOCYTES % 7.7 % (0.0-11.0); NEUTROPHIL # 7.5 10^3/ul (1.6-7.5); NEUTROPHILS % 78.2 % (39.0-77.0); PLATELET COUNT 164 10^3/UL (140-415); RED BLOOD COUNT 3.33 10^6/ul (4.70-6.10); RED CELL DISTRIBUTION WIDTH 13.2 % (11.5-14.5)
[2018-03-20 06:44] LABS: WHITE BLOOD COUNT 9.6 10^3/ul (4.8-10.8)
[2018-03-20] MEDS: POTASSIUM CHLORIDE 20 MEQ POWDER FOR ORAL SOLN NGT (08:58)
[2018-03-20] MEDS: ASPIRIN 81 MG TAB NGT (08:58)
[2018-03-20] MEDS: METOPROLOL 25 MG TAB PO ×2 (09:00→21:44)
[2018-03-20] MEDS: CLOPIDOGREL 75 MG TAB PO (09:00)
[2018-03-20] MEDS: ENOXAPARIN 40 MG/0.4 ML SYG SC (09:01)
[2018-03-20] MEDS: LORAZEPAM 2 MG INJ IV ×2 (12:49→20:15)
[2018-03-20] MEDS: POTASSIUM CHLORIDE 50 ML IVPB ×3 (15:35→21:34)
[2018-03-20] MEDS: ATORVASTATIN 80 MG TAB PO (21:35)
[2018-03-21] MEDS: ALBUTEROL/IPRATROPIUM (NEB) 3 ML AMP HHN ×3 (01:16→20:35)
[2018-03-21] MEDS: METOPROLOL 5 MG INJ IV (01:51)
[2018-03-21] MEDS: LANSOPRAZOLE 30 MG CAP GTB (06:35)
[2018-03-21 07:12] LABS: ADD MAN DIFF? NO
[2018-03-21 07:16] LABS: BASOPHILS % 0.3 % (0.0-2.0); EOSINOPHILS # 0.1 10^3/ul (0.0-0.5); EOSINOPHILS % 0.6 % (0.0-7.0); HEMATOCRIT 32.4 % (42.0-52.0); HEMOGLOBIN 11.6 g/dl (14.0-18.0); LYMPHOCYTES # 1.2 10^3/ul (0.8-2.9); LYMPHOCYTES % 10.7 % (15.0-51.0); MEAN CORPUSCULAR HEMOGLOBIN 30.9 pg (29.0-33.0); MEAN CORPUSCULAR HGB CONC 35.8 g/dl (32.0-37.0); MEAN CORPUSCULAR VOLUME 86.4 fl (82.0-101.0); MEAN PLATELET VOLUME 10.9 fl (7.4-10.4); MONOCYTES % 8.5 % (0.0-11.0); NEUTROPHIL # 9.1 10^3/ul (1.6-7.5); NEUTROPHILS % 79.3 % (39.0-77.0); PLATELET COUNT 202 10^3/UL (140-415); RED BLOOD COUNT 3.75 10^6/ul (4.70-6.10)
[2018-03-21 07:16] LABS: WHITE BLOOD COUNT 11.5 10^3/ul (4.8-10.8)
[2018-03-21 07:52] LABS: ANION GAP 11 (8-16); BLOOD UREA NITROGEN 11 mg/dl (7-20); CALCIUM 8.8 mg/dl (8.4-10.2); CARBON DIOXIDE 27 mmol/L (21-31); CHLORIDE 105 mmol/L (97-110); CREATININE 0.48 mg/dl (0.61-1.24); GLUCOSE 126 mg/dl (70-220); MAGNESIUM 1.8 mg/dl (1.7-2.5); PHOSPHORUS 3.2 mg/dl (2.5-4.9); POTASSIUM 3.4 mmol/L (3.5-5.1); SODIUM 140 mmol/L (135-144)
[2018-03-21] MEDS: POTASSIUM CHLORIDE 20 MEQ POWDER FOR ORAL SOLN NGT (09:33)
[2018-03-21] MEDS: CLOPIDOGREL 75 MG TAB PO (09:34)
[2018-03-21] MEDS: ASPIRIN 81 MG TAB NGT (09:34)
[2018-03-21] MEDS: METOPROLOL 25 MG TAB PO ×2 (09:34→21:27)
[2018-03-21] MEDS: ENOXAPARIN 40 MG/0.4 ML SYG SC (09:43)
[2018-03-21] MEDS: LORAZEPAM 2 MG INJ IV (11:40)
[2018-03-21] MEDS: ATORVASTATIN 80 MG TAB PO (21:27)
[2018-03-22] MEDS: LORAZEPAM 2 MG INJ IV (01:35)
[2018-03-22] MEDS: METOPROLOL 5 MG INJ IV (03:30)
[2018-03-22] MEDS: LANSOPRAZOLE 30 MG CAP GTB (06:00)
[2018-03-22 07:20] LABS: ADD MAN DIFF? NO
[2018-03-22 07:27] LABS: BASOPHILS % 0.3 % (0.0-2.0); EOSINOPHILS % 0.1 % (0.0-7.0); HEMATOCRIT 36.2 % (42.0-52.0); HEMOGLOBIN 12.6 g/dl (14.0-18.0); LYMPHOCYTES # 1.1 10^3/ul (0.8-2.9); LYMPHOCYTES % 7.2 % (15.0-51.0); MEAN CORPUSCULAR HEMOGLOBIN 30.8 pg (29.0-33.0); MEAN CORPUSCULAR HGB CONC 34.8 g/dl (32.0-37.0); MEAN CORPUSCULAR VOLUME 88.5 fl (82.0-101.0); MEAN PLATELET VOLUME 10.5 fl (7.4-10.4); MONOCYTES % 6.9 % (0.0-11.0); NEUTROPHIL # 12.7 10^3/ul (1.6-7.5); PLATELET COUNT 243 10^3/UL (140-415); RED BLOOD COUNT 4.09 10^6/ul (4.70-6.10); RED CELL DISTRIBUTION WIDTH 12.8 % (11.5-14.5)
[2018-03-22 07:55] LABS: ANION GAP 13 (8-16); BLOOD UREA NITROGEN 18 mg/dl (7-20); CALCIUM 9.1 mg/dl (8.4-10.2); CARBON DIOXIDE 29 mmol/L (21-31); CHLORIDE 103 mmol/L (97-110); CREATININE 0.53 mg/dl (0.61-1.24); GLUCOSE 112 mg/dl (70-220); PHOSPHORUS 4.1 mg/dl (2.5-4.9); POTASSIUM 3.6 mmol/L (3.5-5.1); SODIUM 141 mmol/L (135-144)
[2018-03-22] MEDS: ALBUTEROL/IPRATROPIUM (NEB) 3 ML AMP HHN ×2 (08:38→20:04)
[2018-03-22] MEDS: CLOPIDOGREL 75 MG TAB PO (09:27)
[2018-03-22] MEDS: ASPIRIN 81 MG TAB NGT (09:27)
[2018-03-22] MEDS: METOPROLOL 25 MG TAB PO ×2 (09:28→21:00)
[2018-03-22] MEDS: ATROPINE 1 MG/10 ML SYRINGE IV (09:28)
[2018-03-22] MEDS: ENOXAPARIN 40 MG/0.4 ML SYG SC (09:56)
[2018-03-22] MEDS: D5W-0.45 NACL + KCL 20 MEQ 1,000 ML IV (13:36)
[2018-03-22] MEDS: BISACODYL 10 MG SUPP PR (13:36)
[2018-03-22] MEDS: ATORVASTATIN 80 MG TAB PO (21:00)
[2018-03-23] MEDS: LORAZEPAM 2 MG INJ IV ×2 (00:03→22:01)
[2018-03-23] MEDS: ALBUTEROL/IPRATROPIUM (NEB) 3 ML AMP HHN ×4 (01:51→20:05)
[2018-03-23] MEDS: D5W-0.45 NACL + KCL 20 MEQ 1,000 ML IV ×2 (03:16→15:28)
[2018-03-23] MEDS: LANSOPRAZOLE 30 MG CAP GTB (06:00)
[2018-03-23] MEDS: CLOPIDOGREL 75 MG TAB PO (07:59)
[2018-03-23] MEDS: METOPROLOL 25 MG TAB PO ×2 (07:59→20:47)
[2018-03-23] MEDS: ASPIRIN 81 MG TAB NGT (07:59)
[2018-03-23] MEDS: ENOXAPARIN 40 MG/0.4 ML SYG SC (08:04)
[2018-03-23] MEDS ORDERED: VITAMIN A & D 5 GM OINT PACKET TOP (08:09)
[2018-03-23] MEDS ORDERED: POLYETHYLENE GLYCOL 17 GM PACKET PO (09:00)
[2018-03-23] MEDS: ATORVASTATIN 80 MG TAB PO (20:47)
[2018-03-24] MEDS: ALBUTEROL/IPRATROPIUM (NEB) 3 ML AMP HHN ×6 (00:56→20:16)
[2018-03-24] MEDS: LORAZEPAM 2 MG INJ IV ×3 (02:04→20:55)
[2018-03-24] MEDS: LANSOPRAZOLE 30 MG CAP GTB (05:43)
[2018-03-24] MEDS: D5W-0.45 NACL + KCL 20 MEQ 1,000 ML IV ×2 (05:59→18:50)
[2018-03-24 07:15] LABS: ADD MAN DIFF? NO
[2018-03-24 07:21] LABS: WHITE BLOOD COUNT 11.3 10^3/ul (4.8-10.8)
[2018-03-24 07:21] LABS: BASOPHILS % 0.3 % (0.0-2.0); EOSINOPHILS % 0.4 % (0.0-7.0); HEMOGLOBIN 10.6 g/dl (14.0-18.0); MEAN CORPUSCULAR HEMOGLOBIN 30.7 pg (29.0-33.0); MEAN CORPUSCULAR HGB CONC 34.2 g/dl (32.0-37.0); MEAN CORPUSCULAR VOLUME 89.9 fl (82.0-101.0); MEAN PLATELET VOLUME 10.5 fl (7.4-10.4); MONOCYTE # 0.7 10^3/ul (0.3-0.9); MONOCYTES % 6.5 % (0.0-11.0); NEUTROPHIL # 9.4 10^3/ul (1.6-7.5); NEUTROPHILS % 83.4 % (39.0-77.0); PLATELET COUNT 232 10^3/UL (140-415); RED BLOOD COUNT 3.45 10^6/ul (4.70-6.10); RED CELL DISTRIBUTION WIDTH 13.2 % (11.5-14.5)
[2018-03-24 07:54] LABS: ALANINE AMINOTRANSFERASE 80 IU/L (13-69); ALBUMIN 3.2 g/dl (3.3-4.9); ALKALINE PHOSPHATASE 119 IU/L (42-121); ANION GAP 10 (8-16); ASPARTATE AMINO TRANSFERASE 57 IU/L (15-46); BILIRUBIN,INDIRECT 0.7 mg/dl (0-1.1); BILIRUBIN,TOTAL 0.7 mg/dl (0.2-1.3); BLOOD UREA NITROGEN 20 mg/dl (7-20); CALCIUM 8.6 mg/dl (8.4-10.2); CARBON DIOXIDE 30 mmol/L (21-31); CHLORIDE 106 mmol/L (97-110); CREATININE 0.52 mg/dl (0.61-1.24); GLUCOSE 128 mg/dl (70-220); POTASSIUM 3.7 mmol/L (3.5-5.1); SODIUM 142 mmol/L (135-144); TOTAL PROTEIN 6.1 g/dl (6.1-8.1)
[2018-03-24] MEDS: ASPIRIN 81 MG TAB NGT (08:38)
[2018-03-24] MEDS: METOPROLOL 25 MG TAB PO ×2 (08:38→20:56)
[2018-03-24] MEDS: CLOPIDOGREL 75 MG TAB PO (08:38)
[2018-03-24] MEDS: ENOXAPARIN 40 MG/0.4 ML SYG SC (08:44)
[2018-03-24] MEDS: CEFAZOLIN 1 GM/50 ML (PMX) 50 ML IVPB (14:00)
[2018-03-24] MEDS: PROPOFOL 20 ML (14:11)
[2018-03-24] MEDS: LIDOCAINE 2% (SDV) 5 ML INJ (14:11)
[2018-03-24] MEDS: CEFAZOLIN 2 GM/50 ML (PMX) 50 ML IVPB (14:24)
[2018-03-24 17:22] LABS: INR 1.17; PROTIME 15.1 Sec (11.9-14.9); PT RATIO 1.2
[2018-03-24] MEDS: ATORVASTATIN 80 MG TAB PO (20:55)
[2018-03-25] MEDS: LORAZEPAM 2 MG INJ IV ×2 (01:08→06:05)
[2018-03-25] MEDS: ALBUTEROL/IPRATROPIUM (NEB) 3 ML AMP HHN ×6 (01:25→20:19)
[2018-03-25] MEDS: DIAZEPAM 2 MG TAB PO (03:11)
[2018-03-25] MEDS: LANSOPRAZOLE 30 MG CAP GTB (06:05)
[2018-03-25] MEDS: D5W-0.45 NACL + KCL 20 MEQ 1,000 ML IV ×2 (08:10→13:24)
[2018-03-25] MEDS: CLOPIDOGREL 75 MG TAB PO (08:51)
[2018-03-25] MEDS: ASPIRIN 81 MG TAB NGT (08:51)
[2018-03-25] MEDS: METOPROLOL 25 MG TAB PO (08:52)
[2018-03-25] MEDS: ENOXAPARIN 40 MG/0.4 ML SYG SC (08:53)
[2018-03-25] MEDS: QUETIAPINE 25 MG TAB GTB ×2 (12:31→19:49)
[2018-03-25] MEDS: ATORVASTATIN 80 MG TAB PO (19:49)
[2018-03-25] MEDS: ACETAMINOPHEN 650MG/20.3ML CUP PO (19:50)
[2018-03-25] MEDS: METOPROLOL 50 MG TAB PO (20:02)
[2018-03-25] MEDS: LEVALBUTEROL (NEB) 1.25 MG/0.5 ML AMP HHN (21:14)
[2018-03-26] MEDS: DEXTROSE 5%-0.45% NACL 1,000 ML IV (00:18)
[2018-03-26] MEDS: LORAZEPAM 2 MG INJ IV (00:29)
[2018-03-26] MEDS: LEVALBUTEROL (NEB) 1.25 MG/0.5 ML AMP HHN ×4 (02:37→20:23)
[2018-03-26] MEDS: LANSOPRAZOLE 30 MG CAP GTB (05:17)
[2018-03-26] MEDS: ACETAMINOPHEN 650MG/20.3ML CUP PO (05:17)
[2018-03-26] MEDS: CLOPIDOGREL 75 MG TAB PO (08:19)
[2018-03-26] MEDS: ASPIRIN 81 MG TAB NGT (08:20)
[2018-03-26] MEDS: METOPROLOL 50 MG TAB PO ×2 (08:20→20:00)
[2018-03-26] MEDS: QUETIAPINE 25 MG TAB GTB ×2 (08:20→20:00)
[2018-03-26] MEDS: ENOXAPARIN 40 MG/0.4 ML SYG SC (08:32)
[2018-03-26] MEDS: ATORVASTATIN 80 MG TAB PO (20:00)
[2018-03-27] MEDS: LEVALBUTEROL (NEB) 1.25 MG/0.5 ML AMP HHN ×4 (01:47→19:47)
[2018-03-27] MEDS: LANSOPRAZOLE 30 MG CAP GTB (04:58)
[2018-03-27] MEDS: SOD CHLORIDE 0.9% 250 ML IV (06:51)
[2018-03-27] MEDS: IPRATROPIUM (NEB) 0.5 MG/2.5 ML AMP HHN ×3 (08:03→19:48)
[2018-03-27] MEDS: ASPIRIN 81 MG TAB NGT (09:38)
[2018-03-27] MEDS: QUETIAPINE 100 MG TAB GTB ×2 (09:38→20:54)
[2018-03-27] MEDS: METOPROLOL 50 MG TAB PO ×2 (09:38→20:54)
[2018-03-27] MEDS: CLOPIDOGREL 75 MG TAB PO (09:38)
[2018-03-27] MEDS: ENOXAPARIN 40 MG/0.4 ML SYG SC (09:50)
[2018-03-27] MEDS: ATORVASTATIN 80 MG TAB PO (20:54)
[2018-03-27] MEDS: ACETAMINOPHEN 650MG/20.3ML CUP PO (20:54)
[2018-03-28] MEDS: LEVALBUTEROL (NEB) 1.25 MG/0.5 ML AMP HHN ×4 (01:42→20:22)
[2018-03-28] MEDS: IPRATROPIUM (NEB) 0.5 MG/2.5 ML AMP HHN ×3 (01:42→13:57)
[2018-03-28] MEDS: LANSOPRAZOLE 30 MG CAP GTB (05:32)
[2018-03-28] MEDS: METOPROLOL 50 MG TAB PO ×2 (09:04→20:57)
[2018-03-28] MEDS: QUETIAPINE 100 MG TAB GTB (09:04)
[2018-03-28] MEDS: ASPIRIN 81 MG TAB NGT (09:04)
[2018-03-28] MEDS: CLOPIDOGREL 75 MG TAB PO (09:04)
[2018-03-28] MEDS: ENOXAPARIN 40 MG/0.4 ML SYG SC (09:09)
[2018-03-28] MEDS: BISACODYL 10 MG SUPP PR (14:29)
[2018-03-28] MEDS: ATORVASTATIN 80 MG TAB PO (20:57)
[2018-03-28] MEDS: QUETIAPINE 25 MG TAB GTB (20:58)
[2018-03-29] MEDS: LEVALBUTEROL (NEB) 1.25 MG/0.5 ML AMP HHN ×4 (02:11→19:23)
[2018-03-29] MEDS: ACETAMINOPHEN 650MG/20.3ML CUP PO (04:29)
[2018-03-29] MEDS: LANSOPRAZOLE 30 MG CAP GTB (05:52)
[2018-03-29] MEDS: IPRATROPIUM (NEB) 0.5 MG/2.5 ML AMP HHN ×2 (07:38→13:53)
[2018-03-29] MEDS: QUETIAPINE 25 MG TAB GTB ×2 (09:16→20:57)
[2018-03-29] MEDS: CLOPIDOGREL 75 MG TAB PO (09:17)
[2018-03-29] MEDS: METOPROLOL 50 MG TAB PO ×2 (09:17→20:57)
[2018-03-29] MEDS: ENOXAPARIN 40 MG/0.4 ML SYG SC (09:34)
[2018-03-29] MEDS: ASPIRIN 81 MG TAB NGT (10:00)
[2018-03-29] MEDS: ATORVASTATIN 80 MG TAB PO (20:57)
[2018-03-30] MEDS: LEVALBUTEROL (NEB) 1.25 MG/0.5 ML AMP HHN ×4 (02:50→20:34)
[2018-03-30] MEDS: LANSOPRAZOLE 30 MG CAP GTB (05:56)
[2018-03-30] MEDS: METOPROLOL 50 MG TAB PO ×2 (08:35→21:03)
[2018-03-30] MEDS: CLOPIDOGREL 75 MG TAB PO (08:35)
[2018-03-30] MEDS: QUETIAPINE 25 MG TAB GTB ×2 (08:35→21:03)
[2018-03-30] MEDS: ASPIRIN 81 MG TAB NGT (08:35)
[2018-03-30] MEDS: ENOXAPARIN 40 MG/0.4 ML SYG SC (09:00)
[2018-03-30] MEDS: ATORVASTATIN 80 MG TAB PO (21:02)
[2018-03-31] MEDS: LEVALBUTEROL (NEB) 1.25 MG/0.5 ML AMP HHN ×4 (01:16→19:59)
[2018-03-31] MEDS: LANSOPRAZOLE 30 MG CAP GTB (05:27)
[2018-03-31] MEDS: CLOPIDOGREL 75 MG TAB PO (09:52)
[2018-03-31] MEDS: QUETIAPINE 25 MG TAB GTB ×2 (09:52→21:10)
[2018-03-31] MEDS: METOPROLOL 50 MG TAB PO ×2 (09:52→21:10)
[2018-03-31] MEDS: ASPIRIN 81 MG TAB NGT (09:52)
[2018-03-31] MEDS: ENOXAPARIN 40 MG/0.4 ML SYG SC (10:04)
[2018-03-31] MEDS: IPRATROPIUM (NEB) 0.5 MG/2.5 ML AMP HHN (20:00)
[2018-03-31] MEDS: DOCUSATE SODIUM 100 MG CAP PO (21:09)
[2018-03-31] MEDS: SENNA TAB PO (21:10)
[2018-03-31] MEDS: ATORVASTATIN 80 MG TAB PO (21:11)
[2018-04-01] MEDS: LEVALBUTEROL (NEB) 1.25 MG/0.5 ML AMP HHN ×4 (01:20→20:49)
[2018-04-01] MEDS: IPRATROPIUM (NEB) 0.5 MG/2.5 ML AMP HHN (01:20)
[2018-04-01] MEDS: LANSOPRAZOLE 30 MG CAP GTB (05:40)
[2018-04-01] MEDS: ASPIRIN 81 MG TAB NGT (08:37)
[2018-04-01] MEDS: CLOPIDOGREL 75 MG TAB PO (08:38)
[2018-04-01] MEDS: QUETIAPINE 25 MG TAB GTB ×2 (08:38→21:24)
[2018-04-01] MEDS: METOPROLOL 50 MG TAB PO ×2 (08:38→21:24)
[2018-04-01] MEDS: DOCUSATE SODIUM 100 MG CAP PO ×2 (08:39→21:24)
[2018-04-01] MEDS: SENNA TAB PO ×2 (08:39→21:23)
[2018-04-01] MEDS: ENOXAPARIN 40 MG/0.4 ML SYG SC (09:00)
[2018-04-01] MEDS: BISACODYL (EC) 5 MG TAB PO (18:01)
[2018-04-01] MEDS: ATORVASTATIN 80 MG TAB PO (21:23)
[2018-04-02] MEDS: LEVALBUTEROL (NEB) 1.25 MG/0.5 ML AMP HHN ×4 (02:17→20:03)
[2018-04-02] MEDS: LANSOPRAZOLE 30 MG CAP GTB (06:37)
[2018-04-02] MEDS: BISACODYL 10 MG SUPP PR (06:37)
[2018-04-02 07:01] LABS: ADD MAN DIFF? NO
[2018-04-02 07:16] LABS: BASOPHILS % 0.4 % (0.0-2.0); EOSINOPHILS # 0.2 10^3/ul (0.0-0.5); EOSINOPHILS % 2.2 % (0.0-7.0); HEMATOCRIT 29.1 % (42.0-52.0); HEMOGLOBIN 9.6 g/dl (14.0-18.0); LYMPHOCYTES # 1.7 10^3/ul (0.8-2.9); LYMPHOCYTES % 20.3 % (15.0-51.0); MEAN CORPUSCULAR HEMOGLOBIN 30.5 pg (29.0-33.0); MEAN CORPUSCULAR VOLUME 92.4 fl (82.0-101.0); MEAN PLATELET VOLUME 11.9 fl (7.4-10.4); MONOCYTE # 0.5 10^3/ul (0.3-0.9); NEUTROPHIL # 5.8 10^3/ul (1.6-7.5); NEUTROPHILS % 70.7 % (39.0-77.0); PLATELET COUNT 360 10^3/UL (140-415); RED BLOOD COUNT 3.15 10^6/ul (4.70-6.10); RED CELL DISTRIBUTION WIDTH 12.8 % (11.5-14.5)
[2018-04-02 07:16] LABS: WHITE BLOOD COUNT 8.2 10^3/ul (4.8-10.8)
[2018-04-02 07:54] LABS: PHOSPHORUS 3.9 mg/dl (2.5-4.9)
[2018-04-02 07:54] LABS: MAGNESIUM 2.3 mg/dl (1.7-2.5)
[2018-04-02] MEDS: QUETIAPINE 25 MG TAB GTB ×2 (08:15→21:33)
[2018-04-02] MEDS: METOPROLOL 50 MG TAB PO ×2 (08:15→21:34)
[2018-04-02] MEDS: DOCUSATE SODIUM 100 MG CAP PO ×2 (08:15→21:33)
[2018-04-02] MEDS: ASPIRIN 81 MG TAB NGT (08:15)
[2018-04-02] MEDS: CLOPIDOGREL 75 MG TAB PO (08:15)
[2018-04-02] MEDS: SENNA TAB PO ×2 (08:15→21:34)
[2018-04-02] MEDS: ENOXAPARIN 40 MG/0.4 ML SYG SC (08:22)
[2018-04-02 08:27] LABS: ANION GAP 13 (8-16); BLOOD UREA NITROGEN 21 mg/dl (7-20); CALCIUM 8.8 mg/dl (8.4-10.2); CARBON DIOXIDE 31 mmol/L (21-31); CHLORIDE 97 mmol/L (97-110); CREATININE 0.71 mg/dl (0.61-1.24); GLUCOSE 119 mg/dl (70-220); POTASSIUM 3.8 mmol/L (3.5-5.1); SODIUM 137 mmol/L (135-144)
[2018-04-02] MEDS: ATORVASTATIN 80 MG TAB PO (21:33)
[2018-04-03] MEDS: LEVALBUTEROL (NEB) 1.25 MG/0.5 ML AMP HHN ×4 (01:26→19:55)
[2018-04-03] MEDS: LANSOPRAZOLE 30 MG CAP GTB (06:09)
[2018-04-03 08:12] LABS: ADD MAN DIFF? NO
[2018-04-03 08:21] LABS: BASOPHILS % 0.5 % (0.0-2.0); EOSINOPHILS # 0.1 10^3/ul (0.0-0.5); EOSINOPHILS % 1.6 % (0.0-7.0); HEMATOCRIT 31.1 % (42.0-52.0); HEMOGLOBIN 10.2 g/dl (14.0-18.0); LYMPHOCYTES # 1.6 10^3/ul (0.8-2.9); LYMPHOCYTES % 21.1 % (15.0-51.0); MEAN CORPUSCULAR HEMOGLOBIN 30.3 pg (29.0-33.0); MEAN CORPUSCULAR HGB CONC 32.8 g/dl (32.0-37.0); MEAN CORPUSCULAR VOLUME 92.3 fl (82.0-101.0); MEAN PLATELET VOLUME 11.9 fl (7.4-10.4); MONOCYTE # 0.5 10^3/ul (0.3-0.9); MONOCYTES % 6.1 % (0.0-11.0); NEUTROPHIL # 5.4 10^3/ul (1.6-7.5); NEUTROPHILS % 70.3 % (39.0-77.0); PLATELET COUNT 408 10^3/UL (140-415); RED BLOOD COUNT 3.37 10^6/ul (4.70-6.10); RED CELL DISTRIBUTION WIDTH 12.8 % (11.5-14.5)
[2018-04-03 08:21] LABS: WHITE BLOOD COUNT 7.7 10^3/ul (4.8-10.8)
[2018-04-03] MEDS: METOPROLOL 50 MG TAB PO ×2 (08:24→20:20)
[2018-04-03 08:35] LABS: ANION GAP 12 (8-16); BLOOD UREA NITROGEN 16 mg/dl (7-20); CALCIUM 9.3 mg/dl (8.4-10.2); CARBON DIOXIDE 33 mmol/L (21-31); CHLORIDE 97 mmol/L (97-110); CREATININE 0.76 mg/dl (0.61-1.24); GLUCOSE 100 mg/dl (70-220); POTASSIUM 3.7 mmol/L (3.5-5.1); SODIUM 138 mmol/L (135-144)
[2018-04-03] MEDS: DOCUSATE SODIUM 100 MG CAP PO ×2 (08:36→20:19)
[2018-04-03] MEDS: ASPIRIN 81 MG TAB NGT (08:37)
[2018-04-03] MEDS: QUETIAPINE 25 MG TAB GTB (08:37)
[2018-04-03] MEDS: CLOPIDOGREL 75 MG TAB PO (08:37)
[2018-04-03] MEDS: SENNA TAB PO ×2 (08:37→20:20)
[2018-04-03] MEDS: ENOXAPARIN 40 MG/0.4 ML SYG SC (08:47)
[2018-04-03 08:52] LABS: MAGNESIUM 2.3 mg/dl (1.7-2.5)
[2018-04-03] MEDS: ATORVASTATIN 80 MG TAB PO (20:19)
[2018-04-04] MEDS: LEVALBUTEROL (NEB) 1.25 MG/0.5 ML AMP HHN ×4 (01:25→20:28)
[2018-04-04] MEDS: LANSOPRAZOLE 30 MG CAP GTB (06:19)
[2018-04-04] MEDS: DOCUSATE SODIUM 100 MG CAP PO ×2 (09:00→20:13)
[2018-04-04] MEDS: SENNA TAB PO ×2 (09:00→20:13)
[2018-04-04] MEDS: CLOPIDOGREL 75 MG TAB PO (09:10)
[2018-04-04] MEDS: METOPROLOL 50 MG TAB PO ×2 (09:10→20:13)
[2018-04-04] MEDS: ASPIRIN 81 MG TAB NGT (09:10)
[2018-04-04] MEDS: ENOXAPARIN 40 MG/0.4 ML SYG SC (09:28)
[2018-04-04] MEDS: ATORVASTATIN 80 MG TAB PO (20:13)
[2018-04-05] MEDS: LEVALBUTEROL (NEB) 1.25 MG/0.5 ML AMP HHN ×3 (01:37→13:45)
[2018-04-05] MEDS: LANSOPRAZOLE 30 MG CAP GTB (05:55)
[2018-04-05] MEDS: ASPIRIN 81 MG TAB NGT (08:48)
[2018-04-05] MEDS: DOCUSATE SODIUM 100 MG CAP PO (08:49)
[2018-04-05] MEDS: SENNA TAB PO (08:49)
[2018-04-05] MEDS: CLOPIDOGREL 75 MG TAB PO (08:49)
[2018-04-05] MEDS: METOPROLOL 50 MG TAB PO (08:49)
[2018-04-05] MEDS: ENOXAPARIN 40 MG/0.4 ML SYG SC (08:52)
[2018-04-05] MEDS: FUROSEMIDE 20 MG INJ IV (13:39)
== END 2018-04-05 18:40 | disposition home or self-care (01) | DRG 246 ==
LOC: TEL 03-30 12:00 → E/R 19:20 → REC 21:09 → ICU 21:24
PROC: 027036Z Dilation of Coronary Artery, One Artery with Three Drug-eluting Intraluminal Devices, Percutaneous Approach (ICD-10-PCS; principal; 2018-03-14 19:30)
PROC: 4A023N7 Measurement of Cardiac Sampling and Pressure, Left Heart, Percutaneous Approach (ICD-10-PCS; 2018-03-14 19:30)
PROC: B211YZZ Fluoroscopy of Multiple Coronary Arteries using Other Contrast (ICD-10-PCS; 2018-03-14 19:30)
PROC: 3E033PZ Introduction of Platelet Inhibitor into Peripheral Vein, Percutaneous Approach (ICD-10-PCS; 2018-03-14 19:30)
PROC: 0DH63UZ Insertion of Feeding Device into Stomach, Percutaneous Approach (ICD-10-PCS; 2018-03-14 19:50)
PROC: 0T9B70Z Drainage of Bladder with Drainage Device, Via Natural or Artificial Opening (ICD-10-PCS; 2018-03-14 19:50)
PROC: 05HM33Z Insertion of Infusion Device into Right Internal Jugular Vein, Percutaneous Approach (ICD-10-PCS; 2018-03-14 19:50)
PROC: B543ZZA Ultrasonography of Right Jugular Veins, Guidance (ICD-10-PCS; 2018-03-14 19:50)
PROC: 5A1955Z Respiratory Ventilation, Greater than 96 Consecutive Hours (ICD-10-PCS; 2018-03-14 19:50)
DX: I21.19 ST elevation (STEMI) myocardial infarction involving other coronary artery of inferior wall (principal); G92 Toxic encephalopathy; I46.2 Cardiac arrest due to underlying cardiac condition; J96.00 Acute respiratory failure, unspecified whether with hypoxia or hypercapnia; J69.0 Pneumonitis due to inhalation of food and vomit; I49.01 Ventricular fibrillation; G93.1 Anoxic brain damage, not elsewhere classified; M62.82 Rhabdomyolysis; E87.0 Hyperosmolality and hypernatremia; T83.83XA Hemorrhage due to genitourinary prosthetic devices, implants and grafts, initial encounter; R33.9 Retention of urine, unspecified; N36.5 Urethral false passage; R13.10 Dysphagia, unspecified; F17.200 Nicotine dependence, unspecified, uncomplicated; E87.5 Hyperkalemia; D64.9 Anemia, unspecified; I10 Essential (primary) hypertension; I25.10 Atherosclerotic heart disease of native coronary artery without angina pectoris; I48.0 Paroxysmal atrial fibrillation; I25.5 Ischemic cardiomyopathy; K25.9 Gastric ulcer, unspecified as acute or chronic, without hemorrhage or perforation; Z79.82 Long term (current) use of aspirin
CPT/HCPCS: 36600; 70450; 71045; 80048; 80053; 80061; 80076; 82150; 82550; 82553; 82803; 82962; 83036; 83605; 83690; 83735; 84100; 84443; 84484; 85025; 85335; 85378; 85384; 85610; 85730; 87040; 87081; 92526; 92610; 93005; 93306; 93458; 93971; 94002; 94003; 94640; 94664; 94770; 96372; 96374; 97110; 97116; 97162; 97530; 99291-25